=== PATIENT | female | born 1945 | race Caucasian/White ===

== ENCOUNTER 2017-09-22 12:14 | Emergency (ER) | payer MEDICARE ==
[~2017-09-22] VITALS: Ht 170.2 cm; Wt 80.0 kg
[~2017-09-22 12:14] MED LIST: COUMADIN2 MG PO; ESCITALOPRAM OX10 MG PO; LEVOTHYROXIN50 MCG PO; LEVOTHYROXIN75 MCG PO; PROAIR HFA IN; XANAX0.25 MG PO
[2017-09-22 13:01] LABS: HEMOGLOBIN 12.1 g/dl (12.0-16.0); IMMATURE GRANULOCYTES 0.4 % (0.0-1.0); MEAN CELL VOLUME 89.2 fL CALC (80.0-100.0); MEAN CORPUSCULAR HGB 29.2 pG CALC (26.0-32.0); MEAN CORPUSCULAR HGB CONC 32.7 g/L CALC (32.0-36.0); NEUT# 5.44 thou/uL (2.00-7.15); RED BLOOD COUNT 4.15 mill/uL (4.20-5.60); RED CELL DISTRI WIDTH 15.1 % (11.5-15.5)
[2017-09-22 13:16] LABS: INTERNATIONAL NORMALIZED RATIO 2.9 RATIO (0.7-1.3); PROTHROMBIN TIME 33.1 SECONDS (9.0-12.5)
[2017-09-22] MEDS ORDERED: LEVOTHYROXIN100 MCG PO (13:17)
[2017-09-22] MEDS ORDERED: XANAX0.25 MG PO (13:18)
[2017-09-22] MEDS ORDERED: PAXIL40 MG PO (13:19)
[2017-09-22 13:20] LABS: ALKALINE PHOSPHATASE 79 u/l (38-126); ANION GAP 15 (6-22 (CALC)); BILIRUBIN, TOTAL 0.4 mg/dL (0.0-1.4); BUN 12 mg/dL (8-23); BUN/CREATININE RATIO 15 (12-20 (CALC)); CARBON DIOXIDE 22 mmol/l (22-30); CHLORIDE 107 mmol/l (95-108); CREATININE 0.8 mg/dL (0.5-1.0); GFR > 60 ML/MIN (>=60 (CALC)); GFR FOR AFR.AMER. > 60 ML/MIN (>=60 (CALC)); POTASSIUM 4.1 mmol/l (3.5-5.1); SGPT/ALT 24 u/l (11-66); SODIUM 141 mmol/l (137-146)
[2017-09-22] MEDS ORDERED: WARFARIN4 MG PO (13:20)
[2017-09-22] MEDS ORDERED: ASPIRIN81 MG PO (13:21)
[2017-09-22] MEDS ORDERED: GABAPENTIN100 MG PO (13:22)
[2017-09-22] MEDS ORDERED: DONEPEZIL5 MG PO (13:22)
[2017-09-22 13:27] LABS: SGOT/AST 37 u/l (9-36)
[2017-09-22 13:32] LABS: MYOGLOBIN 28 ng/mL (0 - 62)
[2017-09-22 14:27] LABS: URINE BILIRUBIN - DIPSTICK NEGATIVE (NEGATIVE); URINE BLOOD DIPSTICK TRACE-INTACT (NEGATIVE); URINE COLOR YELLOW; URINE GLUCOSE - DIPSTICK NEGATIVE (NEGATIVE); URINE KETONE NEGATIVE (NEGATIVE); URINE NITRITE - DIPSTICK NEGATIVE (Negative); URINE PROTEIN - DIPSTICK NEGATIVE (NEG-TRACE); URINE UROBILINOGEN - DIPSTICK 0.2 E.U./dL (0.2)
[2017-09-22 14:32] LABS: URINE CLARITY SL CLOUDY; URINE LEUK ESTERASE SMALL (NEGATIVE)
[2017-09-22 14:41] LABS: URINE BACTERIA FEW hpf; URINE SQUAMOUS EPITHELIAL CELL MODERATE EPI/hpf (0-FEW)
[2017-09-22 14:42] LABS: URINE FINE GRAN CAST RARE lpf
[2017-09-22] MEDS ORDERED: LISINOPRIL10 MG PO (15:04)
[2017-09-22 16:38] VITALS: BP 195/78
== END 2017-09-22 16:38 | disposition home or self-care (01) ==
LOC: ED 12:14
PROVIDERS: Family Medicine
DX: I10 Essential (primary) hypertension (principal); R53.1 Weakness; J44.9 Chronic obstructive pulmonary disease, unspecified; I48.91 Unspecified atrial fibrillation; G62.9 Polyneuropathy, unspecified; F03.90 Unspecified dementia, unspecified severity, without behavioral disturbance, psychotic disturbance, mood disturbance, and anxiety; F41.9 Anxiety disorder, unspecified; R07.9 Chest pain, unspecified

== ENCOUNTER 2018-01-03 14:45 | Inpatient (IN) | payer MEDICARE ==
[~2018-01-03] VITALS: Ht 170.2 cm; Wt 68.0 kg
[~2018-01-03 14:45] MED LIST changes: +ASPIRIN81 MG PO; +DONEPEZIL5 MG PO; +GABAPENTIN100 MG PO; +LEVOTHYROXIN100 MCG PO; +LISINOPRIL10 MG PO; +PAXIL40 MG PO; +WARFARIN4 MG PO
[2018-01-03] MEDS ORDERED: WARFARIN3 MG PO (15:16)
[2018-01-03] MEDS ORDERED: MULTIVITAMIN WO1 TAB PO (15:21)
[2018-01-03] MEDS ORDERED: TYLENOL 500MG TAB PO (15:22)
[2018-01-09] VITALS (8 sets, daily range): BP systolic 104–157; BP diastolic 57–85
[2018-01-09 11:07] LABS: HEMOGLOBIN 12.7 g/dl (12.0-16.0); IMMATURE GRANULOCYTES 0.5 % (0.0-1.0); MEAN CORPUSCULAR HGB 30.1 pG CALC (26.0-32.0); MEAN CORPUSCULAR HGB CONC 33.4 g/L CALC (32.0-36.0); NEUT# 4.16 thou/uL (2.00-7.15); RED BLOOD COUNT 4.22 mill/uL (4.20-5.60); RED CELL DISTRI WIDTH 14.2 % (11.5-15.5)
[2018-01-09 11:25] LABS: ACT PARTIAL THROMBO TIME 26.1 SECONDS (20.0-32.5)
[2018-01-09 11:28] LABS: ANION GAP 10 (6-22 (CALC)); BUN 10 mg/dL (8-23); BUN/CREATININE RATIO 15 (12-20 (CALC)); CARBON DIOXIDE 29 mmol/l (22-30); CHLORIDE 105 mmol/l (95-108); CREATININE 0.7 mg/dL (0.5-1.0); GFR > 60 ML/MIN (>=60 (CALC)); GFR FOR AFR.AMER. > 60 ML/MIN (>=60 (CALC)); SODIUM 139 mmol/l (137-146)
[2018-01-09 11:59] LABS: PROTHROMBIN TIME 11.7 SECONDS (9.0-12.5)
--- NOTE | 2018-01-09 18:40 | NUR ---
PT ARRIVED TO FLOOR VIA HOSPITAL BED ACCOMPANIED BY OR STAFF MEMBER;PT ORIENTED TO ROOM AND CALL LIGHT SYSTEM;PT ALERT AND ORIENTED X3,DROWSY;RESPIRATIONS APPEAR EVEN AND UNLABORED ON OXYGEN @ 2L VIA NC;PT PLACED ON BEDPAN PER REQUEST;ABDUCTOR PILLOW IN PLACE;BEDSIDE REPORT TO BE GIVEN TO TERESA DHALIWAL FOR ONCOMING SHIFT;FALL PRECAUTIONS IN PLACE WITH CALL LIGHT IN REACH;WILL CONTINUE TO MONITOR
--- NOTE | 2018-01-09 19:15 | NUR ---
PATIENT RESTING IN BED WITH O2 VIA NASAL CANNULA IN PLACE AT 2LPM. PATIENT IS DROWSY-PLACED ON BEDPAN AND VOIDED SMALL AMT OF YELLOW URINE. ABD PILLOW PILLOW IN PLACE. IV SITE TO LEFT FOREARM INTACT AND IVF LR PATENT AND INFUSING AT 100CC/HR, DRESSINGS TO LEFT HIP CDI AT THIS TIME. SCD IN PLACE. FAMILY VISITING IN ROOM. FREQUENT POST-OP VS IN PROGRESS AND STABLE. SAFETY PRECAUTIONS REINFORCED. CALL LIGHT IN REACH. WILL CONT TO MONITOR.
--- NOTE | 2018-01-09 19:45 | NUR ---
PATIENT C/ OF FEELING HER BLADDER IS FULL-ABD/PELVIC DISTENTION PRESENT.BLADDER SCAN FOR 903CC AT THIS TIME. #16 FILIPINO SMITH CATH INSERTED WITHOUT ANY DIFFICULTY DRAINING 1000CC OF CLEAR YELLOW URINE. TUBING CLAMPED PER PROTOCOL-WILL OPEN IN 20 MINUTES. PATIENT STATES THAT SHE IS FEELING BETTER-LESS PELVIC PRESSURE. FAMILY REMAINS AT BEDSIDE. CALL LIGHT IN REACH. WILL CONT TO MONITOR.
--- NOTE | 2018-01-09 20:15 | NUR ---
PATIENT VS REMAINS STABLE-TAKING PO ICE CHIPS AT THIS TIME. C/O POST-OP PAIN TO LEFT HIP-10/10 ON PAIN SCALE. MEDICATED WITH DILAUDID 1MG IVP WITH RELEIF. ADMISSION PROCESS COMPLETED WITH HELP OF FAMILY MEMBERS. PATIENT WITH H/O MRSA AND WILL BE SWABBED AND PLACED ON CONTACT PRECAUTIONS AT THIS TIME. CALL LIGHT IN REACH. WILL CONT TO MONITOR.
--- NOTE | 2018-01-09 21:00 | NUR ---
PATIENT RESTING IN BED AT THIS TIME WITH EYES CLOSED AND APPEARS SLEEPING AT THIS TIME. MSITH PATENT AND DRAINING CLEAR YELLOW URINE. IVF PATENT AND INFUSING AT 100CC/HR. SITE REMAINS HEALTHY AT THIS TIME. O2 VIA NASAL CANNULA IN PLACE. ABD PILLOW IN PLACE. CONT TO MONITOR POST-OP VS. CALL LIGHT IN REACH. WILL CONT TO MONITOR.
--- NOTE | 2018-01-09 23:58 | NUR ---
PATIENT RESTING COMFORTABLY-DROWSY BUT ORIENTED TO PERSON AND PLACE. IV ANCEF HUNG ORDERED. SMITH PATENT AND DRAINING YELLOW URINE. CALL LIGHT IN REACH. WILL CONT TO MONITOR.
[2018-01-10] VITALS (7 sets, daily range): BP systolic 88–132; BP diastolic 46–71
--- NOTE | 2018-01-10 03:24 | NUR ---
PATIENT RESTING IN BED C/O POST-OP LEFT HIP PAIN-10/10 ON PAIN SCALE. PATIENT MEDICATED WITH DILAUDID 1MG IVP FOR PAIN. PATIENT WAS REPOSITIONED IN THE BED. ABD PILLOW ADJUSTED AND REMAINS IN PLACE. TAKING PO ICE CHIPS AND TOLERATING WELL. LEFT FOREARM IV SITE REDRESSED AND J-LOOP APPLIED. SITE IS HEALTHY WITH GOOD BLOOD RETURN. IVF LR PATENT AND INFUSING AT 100CC/HR. PATIENT ABLE TO DEMONSTRATE CORRECT USE OF IS-CONT TO ENCOURAGE USE Q1H WHILE AWAKE. LEFT HIP DRESSINGS REMAINS CDI AT THIS TIME. SMITH PATENT AND DRAINING MIKE URINE. SAFETY PRECAUTIONS REINFORCED. CALL LIGHT IN REACH. WILL CONT TO MONITOR.
[2018-01-10 04:52] LABS: HEMATOCRIT 30.1 % (37.0-47.0); HEMOGLOBIN 9.9 g/dl (12.0-16.0)
--- NOTE | 2018-01-10 07:15 | NUR ---
REPORT RECEIVED FROM TERESA DHALIWAL;PT RESTING IN SEMI FOWLERS POSITION WITH ABDUCTOR PILLOW IN PLACE;INTRODUCED SELF TO PT AND POC DISCUSSED;RESPIRATIONS APPEAR EVEN AND UNLABORED ON 02 @ 2L VIA NC;PT DENIES ANY CURRENT NEEDS;FALL PRECAUTIONS IN PLACE WITH BED IN THE LOWEST POSITION;IT SHOULD BE NOTED THAT PT IS ON CONTACT PRECAUTIONS FOR HX OF MRSA;CALL LIGHT IN REACH;WILL CONTINUE TO MONITOR
--- NOTE | 2018-01-10 07:50 | NUR ---
PT RESTING IN SEMI FOWLERS POSITION EATING BREAKFAST (CLEAR LIQUID);VS OBTAINED AND ASSESSMENT COMPLETED;PT REPORTS COCCYX PAIN RATING 9/10 ON THE PAIN SCALE,PT RE-POSITIONED AND PERCOCET 10/325MG PO 1 COMBO TO BE ADMINISTERED FOR PAIN;RESPIRATIONS EVEN AND UNLABORED ON 02 @ 2L VIA NC,DIMINISHED LUNG SOUNDS NOTED;NON-PRODUCTIVE COUGH;I.S. AT BEDSIDE AND GOAL SET TO 1999,PT DEMONSTRATED USE;ABDOMEN SOFT ON PALPATION AND HYPOACTIVE IN ALL 4 QUADRANTS;ABDUCTOR PILLOW IN PLACE;DRESSINGS TO LEFT HIP,CDI;#20G TO LEFT FOREARM INFUSING LR @ 100ML/HR,SITE APPEARS HEALTHY;SCD NOTED TO RIGHT LEG;SMITH CATHETER PATENT DRAINING CLEAR/YELLOW URINE TO GRAVITY,LEG STRAP NOTED;BLANKETS REMOVED FOR A TEMP OF 99.3;PT DENIES ANY OTHER NEEDS AT THIS TIME;FALL PRECAUTIONS REMAIN IN PLACE;ENCOURAGED TO CALL FOR ASSISTANCE IF NEEDED;CALL LIGHT IN REACH;WILL CONTINUE TO MONITOR
[2018-01-10 09:22] LABS: INTERNATIONAL NORMALIZED RATIO 1.1 RATIO (0.7-1.3); PROTHROMBIN TIME 11.8 SECONDS (9.0-12.5)
--- NOTE | 2018-01-10 10:45 | NUR ---
PHYSICAL THERPAY AT BEDSIDE
--- NOTE | 2018-01-10 11:40 | NUR ---
PT OOB RESTING IN RECLINER WITH FAMILY AT BEDSIDE;VS OBTAINED WITH A CURRENT TEMP REMAINING AT 99.3 BP 88/50 HR 72;PT DENIES ANY PAIN OR DISCOMFORTS;RESPIRATIONS EVEN AND UNLABORED ON RA,RE-ENCOURAGED I.S. USE;IV SITE TO LEFT FOREARM REMAINS PATENT AND HL AT THIS TIME;CONTACT PRECAUTIONS IN PLACE;ENCOURAGED TO CALL FOR ASSISTANCE IF NEEDED;FALL PRECAUTIONS;CALL LIGHT IN REACH;WILL CONTINUE TO MONITOR
--- NOTE | 2018-01-10 12:40 | NUR ---
PT RE-POSITIONED INTO BED WITH 2 PERSON ASSIST,WALKER AND UNSTEADY GAIT;BED BATH PROVIDED WITH SMITH CARE;PT REPORTS NAUSEA BUT DENIES THE NEED FOR AN ANTIEMETIC,EMESIS BAGS PROVIDED;FALL PRECAUTIONS REMAIN IN PLACE;CALL LIGHT IN REACH;WILL CONTINUE TO MONITOR
--- NOTE | 2018-01-10 14:00 | NUR ---
PT COMPLAINS OF LEFT HIP PAIN RATING 10/10 ON THE PAIN SCALE AND REQUESTS PAIN MEDICATION;PT MEDICATED WITH PERCOCET 10/325MG PO 2 COMBO AT THIS TIME,WILL MONITOR FOR EFFECTIVENESS
--- NOTE | 2018-01-10 14:25 | NUR ---
PHYISCAL THERAPY AT BEDSIDE
--- NOTE | 2018-01-10 14:46 | NUR ---
Pt. found resting in bed, when questioned pt. agrees to participate in functional actvities consisting of transfer training. Hip precautions reviewed, gait belt and non skid socks applied. AROM of bilateral toes and ankle pumps done for warm up prior to transfer training. Supine to sit with mod. assist x1 and verbal cues for using bed railing to assist. Good static sitting balance noted. Bed was elevated to faciliate sit to stand to standard walker which was done with min. assist x 1 and v.c.'s for UE push off. Pt. took 3 steps to recliner using standard walker with CGA x 1 and verbal cues for proper patterning. Pt. instructed on reaching back for armrests on recliner and gently lowering onto recliner of which she proceeded to do with CGA x 1. LE's were elevated, call light and bedside table left within reach. Pt. without questions or concerns.
--- NOTE | 2018-01-10 16:50 | NUR ---
PT OOB RESTING IN RECLINER;PT DENIES ANY CURRENT PAIN OR NEEDS;RESPIRATIONS REMAIN EVEN AND UNLABORED ON RA;SMITH CATHETER IN PLACE;ENCOURAGED TO CALL FOR ASSISTANCE IF NEEDED;FALL PRECAUTIONS;CALL LIGHT IN REACH;WILL CONTINUE TO MONITOR
--- NOTE | 2018-01-10 20:00 | NUR ---
PATIENT SITTING ON THE SIDE OF THE BED-AWAKE ALERT AND ORIENTEDX3 USING IS HAS BEEN INSTRUCTED. ENCOURAGE TO CONT USING IS Q1H W/A IN REPS OF 10. PATIENT IS ON ROOM AIR AT THIS TIME WITH NO DISTRESS NOTED. BS ARE CLEAR-DIMINISHED IN THE BASES-ENCOURAGED CDB EXERCISES. SMITH CATH IS PATENT AND DRAINING YELLOW URINE. DRESSING TO LEFT HIP IS CDI. IV SITE TO LEFT FOREARM INTACT-APPEARS HEALTHY AT THIS TIME. PATIENT ASSISTED BACK TO THE BED AND ABD IS IN PLACE. MEDICATED FOR C/O POST-OP PAIN WITH PERCOCET 10/325MG PO. ENCOURAGED PO FLUIDS-PROVIDED WITH SODA. SAFETY PRECAUTIONS REINFORCED.CALL LIGHT IN REACH. WILL CONT TO MONITOR.
--- NOTE | 2018-01-10 22:00 | NUR ---
PATIENT RESTING IN BED-APPEARS SLEEPING AT THIS TIME-O2 SAT AT THIS TIME 92% ON RA-O2 VIA NASAL CANNULA APPLIED AT 2LPM. CALL LIGHT IN REACH. WILL CONT TO MONITOR.
--- NOTE | 2018-01-11 00:30 | NUR ---
PATIENT RESTING IN BED-MEDICATED FOR C/O POST-OP PAIN WITH PERCOCET ORDERED. SAFETY PRECAUTIONS REINFORCED. CALL LIGHT IN REACH. WILL CONT TO MONITOR.
--- NOTE | 2018-01-11 02:35 | NUR ---
PATIENT CALLED C/O SEVERE PAIN TO LEFT HIP AND TO HER COCCYX. PATIENT WAS TURNED AND REPOSITIONED ON HER RIGHT SIDE. MEDICATED FOR PAIN WITH DILAUDID 1MG IVP FOR 10/10 ON PAIN SCALE. DRESSING TO LEFT HIP CLEAN DRY AND INTACT. SMITH DRAINING MIKE URINE. TAKING SIPS OF PO FLUIDS. IV SITE TO LEFT FOREARM REMAINS HEALTHY. SAFETY PRECAUTIONS REINFORCED. CALL LIGHT IN REACH. WILL CONT TO MONITOR.
--- NOTE | 2018-01-11 04:23 | NUR ---
PATIENT APPEARS SLEEPING WITH EYES CLOSED AND POSITIONED ON HER SIDE. RESP ARE EVEN AND UNLABORED WITH O2 VIA NASAL CANNULA IN PLACE. CALL LIGHT IN REACH. WILL CONT TO MONITOR.
[2018-01-11 04:26] LABS: HEMATOCRIT 24.7 % (37.0-47.0); HEMOGLOBIN 8.1 g/dl (12.0-16.0)
[2018-01-11 04:40] LABS: INTERNATIONAL NORMALIZED RATIO 1.2 RATIO (0.7-1.3); PROTHROMBIN TIME 13.6 SECONDS (9.0-12.5)
[2018-01-11 04:47] LABS: BUN 19 mg/dL (8-23); BUN/CREATININE RATIO 20 (12-20 (CALC)); CARBON DIOXIDE 26 mmol/l (22-30); CHLORIDE 101 mmol/l (95-108); GFR 54 ML/MIN (>=60 (CALC)); GFR FOR AFR.AMER. > 60 ML/MIN (>=60 (CALC)); MAGNESIUM 1.9 mg/dL (1.6-2.3); POTASSIUM 3.6 mmol/l (3.5-5.1)
[2018-01-11 04:51] LABS: ANION GAP 9 (6-22 (CALC))
[2018-01-11 04:52] LABS: SODIUM 132 mmol/l (137-146)
[2018-01-11 05:16] VITALS: BP 103/47
--- NOTE | 2018-01-11 07:25 | NUR ---
REPORT RECEIVED FROM TERESA DHALIWAL;PT APPEARS TO BE SLEEPING IN SUPINE POSITION;NO S/S OF DISTRESS NOTED;RESPIRATIONS EVEN AND UNLABORED ON OXYGEN @ 2L VIA NC;NO S/S OF DISTRESS NOTED;FALL PRECAUTIONS IN PLACE WITH CALL LIGHT IN REACH;WILL CONTINUE
[2018-01-11 09:24] VITALS: BP 95/40
--- NOTE | 2018-01-11 09:25 | NUR ---
PT RESTING IN SEMI FOWLERS POSITION;PT DENIES ANY PAIN OR DISCOMFORTS;RESPIRATIONS EVEN AND UNLABORED ON OXYGEN @ 2L VIA NC,CLEAR LUNG SOUNDS NOTED;I.S. AT BEDSIDE AND PT ENCOURAGED TO USE 10X PER HOUR WHILE AWAKE;ABDOMEN SOFT ON PALPATION AND ACTIVE IN ALL 4 QUADRANTS;LEFT HIP DRESSING CDI;ABDUCTOR PILLOW IN PLACE;SMITH CATHETER PATENT DRAINING CLEAR/YELLOW URINE,LEG STRAP NOTED;#20G TO LEFT FOREARM FLUSHED AND PATENT,SITE APPEARS HEALTHY;PT DENIES ANY OTHER CURRENT NEEDS;ENCOURAGED TO CALL FOR ASSISTANCE IF NEEDED;FALL PRECAUTIONS IN PLACE;CALL LIGHT IN REACH;WILL CONTINUE TO MONITOR
--- NOTE | 2018-01-11 11:35 | NUR ---
PHYSICAL THERAPY AT BEDSIDE
--- NOTE | 2018-01-11 12:00 | NUR ---
PT OOB RESTING IN RECLINER,DROWSY/WEAK;PT DENIES ANY PAIN OR NEEDS;RESPIRATIONS SHALLOW ON OXYGEN @ 2L VIA NC;SMITH CATHETER PATENT DRAINING TO GRAVITY WITH EASE;PT ENCOURAGED TO USE I.S. AND INCREASE ORAL INTACT;FALL PRECAUTIONS REMAIN IN PLACE;CALL LIGHT IN REACH;WILL CONTINUE TO MONITOR
[2018-01-11 12:45] VITALS: BP 98/59
--- NOTE | 2018-01-11 12:50 | NUR ---
AM: PATIENT RECEIVED ADL RETRAINING THIS A.M. GAIT TRAINIING WAS ATTEMPTED AND PATIENT WAS DIZZY AND PO2 DROPPED TO 89% WHEN SHE STOOD. SHE WAS PLACED ON O2 AND RETURNED TO THE CHAIR THE O2 LEVEL RETURNED TO 95% WITHIN ONE MINUTE AND PATIENT STATED SHE FELT BETTER. ACTIVE AND ISOMETRIC EX DONE IN THE CHAIR. REINTRUCTED PATIENT AND FAMILY IN HIP PRECAUTIONS. SHE WAS LEFT COMFORTABLE IN THE CHAIR WITH THE ABDUCTION PILLOW INTACT AND HER FAMILTY IN THE ROOM.
--- NOTE | 2018-01-11 13:30 | NUR ---
SMITH CATHETER REMOVED AT THIS TIME,PT TOLERATED WELL;100CC OF CLEAR/YELLOW URINE EMPTIED FROM CATHETER BAG;PT TO BE RE-POSITIONED BACK INTO BED FOR COMFORT
--- NOTE | 2018-01-11 14:37 | NUR ---
PM; REFUSED TREATMENT. PATIENT STATES SHE IS HURTING REAL BAD, FEELS NAUSEOUS, AND WEAK. WILL OFFER THERAPY AGAIN IN A.M.
[2018-01-11 14:50] VITALS: BP 105/61
--- NOTE | 2018-01-11 14:50 | NUR ---
PT RE-POSITIONED INTO BEDSIDE WITH 2 PERSON ASSIST AND UNSTEADY GAIT;DRESSINGS TO LEFT HIP REMOVED PER ORDER AND PT TOLERATED WELL;RESPIRATIONS REMAIN EVEN AND UNLABORED,SHALLOW ON OXYGEN @ 2L VIA NC;PT REPORTS LEFT HIP PAIN RATING 8/10 ON THE PAIN SCALE AND REQUESTS PAIN MEDICATION;PT MEDICATED WITH PRN PERCOCET 10/325MG 1 COMBO PO,WILL CONTINUE TO MONITOR FOR EFFECTIVENESS
--- NOTE | 2018-01-11 16:30 | NUR ---
PT APPEARS TO BE SLEEPING IN SUPINE POSITION;NO S/S OF DISTRESS NOTED;RESPIRATIONS EVEN AND UNLABORED ON OXYGEN @ 2L VIA NC;FALL AND CONTACT PRECAUTIONS IN PLACE;CALL LIGHT IN REACH;WILL CONTINUE TO MONITOR
[2018-01-11 17:33] VITALS: BP 94/56
[2018-01-11 19:20] VITALS: BP 84/50
[2018-01-12] VITALS (9 sets, daily range): BP systolic 97–154; BP diastolic 51–78
--- NOTE | 2018-01-12 01:42 | NUR ---
PATIENT ASSISTED UP TO THE BSC-VERY WEAK AND SOB WITH EXHERSION. VOIDED 100CC OF MIKE URINE. PATIENT USING IS INSTRUCTED BUT HAVING SOME DIFFICULTY. VENTOLIN INHALER GIVEN. ASSISTED BACK TO BED AND ABD PILLOW IN PLACE. BLADDER SCAN FOR 324CC. O2 VIA NASAL CANNULA IN PLACE. CALL LIGHT IN REACH. WILL CONT TO MONITOR.
--- NOTE | 2018-01-12 03:58 | NUR ---
PATIENT ASSISTED TO BSC TO VOID 200CC OF YELLOW URINE. PATIENT WAS ALSO INCONT OF MODERATE AMT OF URINE ON PROTECTIVE PAD ON THE BED. PATIENT C/O THAT SHE STILL FEELS FULL AFTER VOID. ASSISTED BACK TO BED. ABD/PELVIC DISTENTION PRESENT. FEELS PRESSURE. BBLADDER SCAN FOR 364CC/ #16 TU[place] SMITH CATH INSERTED AND DRAINING YELLOW URINE. VS TAKEN AND RECORDED. C/O POST-OP PAIN-MEDICATED WITH PERCOCET 10/325MG PO. CALL LIGHT IN REACH. WILL CONT TO MONITOR.
[2018-01-12 05:04] LABS: HEMOGLOBIN 7.8 g/dl (12.0-16.0); IMMATURE GRANULOCYTES 0.5 % (0.0-1.0); MEAN CELL VOLUME 90.9 fL CALC (80.0-100.0); MEAN CORPUSCULAR HGB 29.5 pG CALC (26.0-32.0); MEAN CORPUSCULAR HGB CONC 32.5 g/L CALC (32.0-36.0); NEUT# 6.59 thou/uL (2.00-7.15); RED BLOOD COUNT 2.64 mill/uL (4.20-5.60); RED CELL DISTRI WIDTH 14.2 % (11.5-15.5)
[2018-01-12 05:19] LABS: BUN 15 mg/dL (8-23); BUN/CREATININE RATIO 20 (12-20 (CALC)); CARBON DIOXIDE 28 mmol/l (22-30); CHLORIDE 98 mmol/l (95-108); CREATININE 0.8 mg/dL (0.5-1.0); GFR > 60 ML/MIN (>=60 (CALC)); GFR FOR AFR.AMER. > 60 ML/MIN (>=60 (CALC)); MAGNESIUM 2.1 mg/dL (1.6-2.3); SODIUM 131 mmol/l (137-146)
[2018-01-12 05:22] LABS: INTERNATIONAL NORMALIZED RATIO 1.3 RATIO (0.7-1.3); PROTHROMBIN TIME 14.7 SECONDS (9.0-12.5)
[2018-01-12 05:25] LABS: ANION GAP 9 (6-22 (CALC)); POTASSIUM 4.4 mmol/l (3.5-5.1)
--- NOTE | 2018-01-12 06:50 | NUR ---
REPORT RECEIVED FROM TERESA DHALIWAL;PT RESTING IN SEMI FOWLERS POSITION;INTRODUCED SELF TO PT AND POC DISCUSSED,PT VERBALIZES UNDERSTANDING;RESPIRATIONS EVEN AND UNLABORED,SHALLOW ON O2 @ 2L;ENCOURAGED PT TO EXPRESS NEEDS AND CONCERNS;FALL PRECAUTIONS IN PLACE WITH CALL LIGHT IN REACH;WILL CONTINUE TO MONITOR
--- NOTE | 2018-01-12 09:00 | NUR ---
PT RESTING IN SEMI FOWLERS POSITION;VS OBTAINED AND ASSESSMENT COMPLETED;PT DENIES ANY CURRENT PAIN AND IS RE-POSITIONED TO HER LEFT SIDE PER REQUEST;RESPIRATIONS EVEN AND UNLABORED ON O2 @ 2L VIA NC,SHALLOW BREATHING WITH CLEAR/DIMINISHED LUNG SOUNDS;ENCOURAGED I.S. AND PT DEMONSTRATED USE,GOAL SET TO 1500;ABDOMEN SOFT ON PALPATION AND ACTIVE IN ALL 4 QUADRANTS;#20G TO LEFT FOREARM FLUSHED AND PATENT,SITE APPEARS HEALTHY;SMITH CATHETER PATENT DRAINING CLEAR/YELLOW URINE,LEG STRAP IN PLACE;PT EDUCATED ON THE NEED FOR 1 UNIT OF PRBCS AND VERBALIZES UNDERSTANDING,ALL QUESTIONS ANSWERED AT THIS TIME AND CONSENT TO BE OBTAINED;ENCOURAGED PO FLUIDS;FALL PRECAUTIONS REMAIN IN PLACE WITH BED IN THE LOWEST POSITION;CALL LIGHT IN REACH;WILL CONTINUE TO MONITOR
--- NOTE | 2018-01-12 09:55 | NUR ---
FIRST UNIT OF PRBC'S STARTED AT THIS TIME WITH EASE;BLOOD PRODUCTS AND ADVERSE REACTIONS EXPLAINED IN DEPTH AND PT VERBALIZES UNDERSTANDING;PT ENCOURAGED TO REPORT ANY TRANSFUSION REACTIONS;WRITTER TO REMAIN AT BEDSIDE FOR FIRST 15MINS;WILL CONTINUE TO MONITOR
--- NOTE | 2018-01-12 10:05 | NUR ---
IV SITE TO LEFT FOREARM DISLODGED,SITE REMOVED WITH CATHETER INTACT;NEW SITE TO BE STARTED
--- NOTE | 2018-01-12 10:45 | NUR ---
NEW #22G TO RIGHT WRIST STARTED BY TERESA THIBODEAUX ON 3RD ATTEMPT,PT TOLERATED WELL;TRANSFUSION CONTINUED AT THIS TIME;WILL CONTINUE TO MONITOR
--- NOTE | 2018-01-12 11:00 | NUR ---
PT RESTING IN LEFT SIDE LAYING POSITION WITH FAMILY AT BEDSIDE;BLOOD TRANSFUSION INFUSING WITH EASE TO RIGHT WRIST;VS OBTAINED BP 117/51 HR 66 TEMP 98.0;RESPIRATIONS REMAIN EVEN AND UNLABORED ON 02 @ 2L;PT DENIES ANY CURRENT NEEDS;ENCOURAGED TO CALL FOR ASSISTANCE IF NEEDED;WILL CONTINUE TO MONITOR CLOSELY
--- NOTE | 2018-01-12 11:48 | NUR ---
Attempted treatment this am, pt rec'ing blood. Will follow.
--- NOTE | 2018-01-12 12:00 | NUR ---
PT RESTING IN SEMI FOWLERS POSITION WITH FAMILY AT BEDSIDE;RESPIRATIONS REMAIN EVEN AND UNLABORED ON OXYGEN @ 2L;VS OBTAINED;BLOOD INFUSING WITH EASE TO RIGHT WRIST;PT DENIES ANY CURRENT PAIN OR NEEDS;SMITH CATHETER PATENT DRAINING TO GRAVITY;ENCOURAGED PT TO CALL FOR ASSISTANCE IF NEEDED;CALL LIGHT IN REACH;WILL CONTINUE TO MONITOR
--- NOTE | 2018-01-12 13:00 | NUR ---
BLOOD TRANSFUSION COMPLETED AT THIS TIME;VS OBTAINED;PT DENIES ANY PAIN OR NEEDS;REPSPIRATIONS REMAIN EVEN AND UNLABORED;SMITH CATHETER PATENT DRAINING TO GRAVITY;ENCOURAGED PT TO CALL FOR ASSISTANCE IF NEEDED;FALL PRECAUTIONS IN PLACE;WILL CONTINUE TO MONITOR
--- NOTE | 2018-01-12 13:50 | NUR ---
PT FOUND ATTEMPTING TO GET OUT OF BED,TEARFUL;PT STATES "I JUST NEED TO GET OUT OF THIS BED";WHEN ASKED WHY SHE DIDNT CALL PT STATES "I JUST COULDN'T"; PT RE-POSITIONED INTO RECLINER WITH 1 PERSON ASSIST;PRN PERCOCET 10/325MG 1 COMBO PO ADMINISTERED FOR GENERALIZED PAIN RATING 10/10 ON THE PAIN SCALE;PT DENIES ANY OTHER CURRENT NEEDS;ENCOURAGED TO CALL FOR ASSISTANCE IF NEEDED;CALL LIGHT IN REACH;WILL CONTINUE TO MONITOR
--- NOTE | 2018-01-12 15:50 | NUR ---
PT SLEEPING IN RECLINER AT THIS TIME;RESPIRATIONS EVEN AND UNLABORED ON RA;NO S/S OF DISTRESS NOTED;FALL PRECAUTIONS IN PLACE WITH CALL LIGHT IN REACH;WILL CONTINUE TO MONITOR
--- NOTE | 2018-01-12 15:50 | NUR ---
PATIENT SNOOZING WHILE UP IN CHAIR, EASILY AROUSED. SHE STATES SHE IS FEELING MUCH BETTER SINCE HAVING HAD BLOOD TRANSFUSION THIS A.M. SIT TO STAND WITH SBA TO WALKER FOR GT IN ROOM (ON CONTACT PRECAUTIONS). AMB 35 FT WITH SBA AND V.C.'S ONLY FOR INCREASED STEP LENGTH. STAND TO SIT WITH V.C.'S WELL. PATIENT HAD RIGHT [employer] ABOUT 6 YEARS AGO AND STATES THAT SHE HAS ALL THE EQUIPMENT SHE NEEDS AT HOME. SHE IS GOING TO GO TO REHAB WHEN D/C'D. PATIENT LEFT UP IN CHAIR WITH TRAY TABLE AND CALL MARROQUIN IN REACH. NSG PRESENT.
--- NOTE | 2018-01-12 19:57 | NUR ---
MEDICATED PT.FOR PAIN 6/10 ON PAIN SCALE. PT.STATES SHE HAS BEEN SITTING IN CHAIR FOR A LONG TIME. FAMILY IS AT BEDSIDE AND ASSISTING HER BACK TO BED. POC AND MEDICATIONS DISCUSSED. PT.PROVIDED WARMED BLANKET AND KLEENEX. NO OTHER NEEDS NOTED AT THIS THIS TIME. CALL LIGHT AT SIDE AND PT.ENCOURAGED TO CALL IF ANY NEEDS ARISE.
--- NOTE | 2018-01-12 21:43 | NUR ---
PT.MEDICATED ORDERS PROVIDE. PT.IS BACK TO BED W/WEDGE PLACED BETWEEN LEGS. ASSESSMENT COMPLETED AT THIS TIME, LUNG SOUNDS ARE CLEAR, DENIES BM TODAY, SMITH PATENT AND DRAINING DARK YELLOW CLEAR URINE AT THIS TIME, ABD SOFT NON-TENDER, PT.RESPONSIVE AND LOCX3,BUT APPEARS VERY GROGGY/XANAX HELD AT THIS TIME. CALL LIGHT W/IN REACH AND PT.ENCOURAGED TO CALL.
[2018-01-13] VITALS (7 sets, daily range): BP systolic 93–140; BP diastolic 49–72
--- NOTE | 2018-01-13 02:47 | NUR ---
PT.APPEARS TO BE SLEEPING AT THIS TIME. CALL LIGHT AT BEDSIDE, NO S/S OF DISTRESS NOTED.
--- NOTE | 2018-01-13 03:52 | NUR ---
V/S ASSESSED, PT ASSISTED IN REPOSITIONING. C/O PAIN "ALL OVER," PT WAS MEDICATED W/PAIN MEDICATION AT THIS TIME. WEDGE BETWEEN LEGS FOR POSITIONING. PT.ASSISTED W/INTAKE OF PO FLUIDS. DENIES ANY OTHER NEEDS AT THIS TIME. CALL LIGHT W/IN REACH
[2018-01-13 06:04] LABS: HEMATOCRIT 22.2 % (37.0-47.0); HEMOGLOBIN 7.5 g/dl (12.0-16.0); IMMATURE GRANULOCYTES 0.5 % (0.0-1.0); MEAN CORPUSCULAR HGB 30.7 pG CALC (26.0-32.0); MEAN CORPUSCULAR HGB CONC 33.8 g/L CALC (32.0-36.0); NEUT# 4.5 thou/uL (2.00-7.15); RED BLOOD COUNT 2.44 mill/uL (4.20-5.60); RED CELL DISTRI WIDTH 14.1 % (11.5-15.5)
[2018-01-13 06:20] LABS: ANION GAP 6 (6-22 (CALC)); BUN 12 mg/dL (8-23); BUN/CREATININE RATIO 18 (12-20 (CALC)); CARBON DIOXIDE 31 mmol/l (22-30); CHLORIDE 102 mmol/l (95-108); CREATININE 0.6 mg/dL (0.5-1.0); GFR > 60 ML/MIN (>=60 (CALC)); GFR FOR AFR.AMER. > 60 ML/MIN (>=60 (CALC)); INTERNATIONAL NORMALIZED RATIO 1.4 RATIO (0.7-1.3); MAGNESIUM 2.3 mg/dL (1.6-2.3); POTASSIUM 4.4 mmol/l (3.5-5.1); SODIUM 135 mmol/l (137-146)
--- NOTE | 2018-01-13 09:15 | NUR ---
PT RESTING IN BED,NO SIGNS OF DISTRESS NOTED, RESP EVEN AND UNLABORED. PT IS USING IS, TOLERATING WELL. PT ALERT AND ORIENTED X2, REQUIRES REORIENTATION TO TIME AND DAY, PT RESPONDED WITH "IS IT MORNING OR NIGHT,I'M A LITTLE LOONEY" ABDUCTOR PAD IN BETWEEN BLE. LUNG SOUNDS DAVIS STARTED ON NEB TX, PT GIVEN MOM,MIRALAX,COLACE,AND PRUNE JUICE SINCE SHE STATES SHE HAS NOT HAD A BM SINCE ADMISSION. ASSESSMENT COMPLETED AT THIS TIME. CALL LIGHT IN REACH,CONTINUE TO MONITOR.
--- NOTE | 2018-01-13 10:55 | NUR ---
PT TAKEN DOWN TO RADIOLOGY FOR CXR, TRANPORTED VIA WHEELCHAIR ACCOMPANIED BY VOLUNTEER. CONTINUE TO MONITOR.
--- NOTE | 2018-01-13 11:15 | NUR ---
PT RETURNED FROM RADIOLOGY, PT IN AGREEMENT TO TAKE A SHOWER, ASSISTED BY CNAS TO SHOWER, PT TOLERATED WELL. FAMILY AT BEDSIDE. CONTINUE TO MONITOR.
--- NOTE | 2018-01-13 12:07 | NUR ---
Attempted treatment at 11;50, pt eating lunch.
--- NOTE | 2018-01-13 13:30 | NUR ---
PT RESTING IN BED NO SIGNS OF DISTRESS NOTED, INITIATED PRBCS WITH RN, PT MEDICATED FOR PAIN, CALL LIGHT IN REACH CONTINUE TO MONITOR.
--- NOTE | 2018-01-13 14:03 | NUR ---
Pt in bed with nursing preparing to give pt Blood. Unable to treat pt at this time.
--- NOTE | 2018-01-13 16:10 | NUR ---
UNIT OF PRBCS INFUSION COMPLETED, PT VOICES NO NEEDS OR COMPLAINTS AT THIS TIME, VSS, CALL LIGHT IN REACH,CONTINUE TO MONITOR.
--- NOTE | 2018-01-13 19:25 | NUR ---
REPORT RECEIVED FROM DAY NURSE, FAMILY IS AT BEDSIDE. PT.IS UPRIGHT IN RECLINER. DENIES ANY NEEDS AT THIS TIME.
--- NOTE | 2018-01-13 20:55 | NUR ---
PT.IS IN BED IN HIGH FOWLERS POSITION W/LIGHTS ON LOW. SMITH CATHETER REMOVED AND POC DISCUSSED W/PT. WEDGE PLACED BETWEEN LEGS AND PT.REPOSTIONED IN BED FOR COMFORT. CALL LEBRON SOLORZANO SIDE AND PT ENCOURAGED TO CALL.
[2018-01-13] MEDS ORDERED: GLYCOLAX3350 N1 PO (21:09)
[2018-01-13] MEDS ORDERED: SURFAK240 MG/CAP PO (21:09)
[2018-01-13] MEDS ORDERED: PAROXETINE HCL10 MG PO (21:11)
[2018-01-13] MEDS ORDERED: XANAX0.25 MG PO (21:11)
[2018-01-13] MEDS ORDERED: PERCOCET 10/31 COMBO PO (21:13)
[2018-01-13] MEDS ORDERED: FERROUS SULF325 M2 PO (21:14)
--- NOTE | 2018-01-14 02:10 | NUR ---
PT.ASSISTED TO BSC AND BACK TO BED. PT AMBULATED WELL W/1XASSIST USING WALKER. PT.HAS REDNESS TO UPPER INNER L.THIGH AND DISTAL OUTER L.THIGH. WEDGE PLACED BETWEEN LEGS AND ASSISTED IN POSITIONING FOR COMFORT. PO FLUIDS OFFERED/PROVIDED APPLE JUICE. CALL LIGHT AT BEDSIDE.
[2018-01-14 04:19] VITALS: BP 134/67
[2018-01-14 06:16] LABS: HEMATOCRIT 25.7 % (37.0-47.0); HEMOGLOBIN 8.5 g/dl (12.0-16.0); IMMATURE GRANULOCYTES 0.5 % (0.0-1.0); MEAN CELL VOLUME 90.8 fL CALC (80.0-100.0); MEAN CORPUSCULAR HGB CONC 33.1 g/L CALC (32.0-36.0); NEUT# 4.53 thou/uL (2.00-7.15); RED BLOOD COUNT 2.83 mill/uL (4.20-5.60); RED CELL DISTRI WIDTH 14.6 % (11.5-15.5)
[2018-01-14 06:29] LABS: ANION GAP 9 (6-22 (CALC)); BUN 10 mg/dL (8-23); BUN/CREATININE RATIO 17 (12-20 (CALC)); CARBON DIOXIDE 30 mmol/l (22-30); CHLORIDE 100 mmol/l (95-108); CREATININE 0.6 mg/dL (0.5-1.0); GFR > 60 ML/MIN (>=60 (CALC)); GFR FOR AFR.AMER. > 60 ML/MIN (>=60 (CALC)); MAGNESIUM 2.4 mg/dL (1.6-2.3); POTASSIUM 4.6 mmol/l (3.5-5.1); SODIUM 135 mmol/l (137-146)
[2018-01-14 06:35] LABS: INTERNATIONAL NORMALIZED RATIO 1.8 RATIO (0.7-1.3)
[2018-01-14 07:28] VITALS: BP 150/66; BP 174/73
--- NOTE | 2018-01-14 07:28 | NUR ---
PT RESTING IN BED, NO SIGNS OF DISTRESS NOTED, RESP EVEN AND UNLABORED. PT ALERT AND ORIENTED X3. PT LUNG SOUNDS BETTER THAN YESTERDAYS ASSESSMENT. PT NO LONGER PRODUCING BLOODY SPUTUM. INCISION TO L HIP INTACT WITH DERMABOND. NOTED REDNESS TO DISTAL OUTER THIGH FROM INCISION, AND TO INNER THIGH. SMITH REMOVED LAST NIGHT PT HAS BEEN UP TO BSC WITH STAND BY ASSIST PT ABLE TO AMBULATE WITH WALKER. CALL LIGHT IN REACH,CONTINUE TO MONITOR.
--- NOTE | 2018-01-14 12:11 | NUR ---
PT SITTING IN RECLINER EATING LUNCH. MEDICATED FOR PAIN. PT TO BE TRANSPORTED TO [facility] IN [place], IV SITE REMOVED, CATHETER INTACT. PT TOLERATED WELL. CALL LIGHT IN REACH,CONTINUE TO MONITOR.
--- NOTE | 2018-01-14 12:30 | NUR ---
Discharge instructions given. Patient verbalizes understanding of same. Discharged in stable condition via Stretcher to *Other with *Other. All belongings sent with pt.
--- NOTE | 2018-01-14 12:45 | NUR ---
REPORT GIVEN TO NURSE IN [facility].
== END 2018-01-14 12:40 | DRG 470 ==
LOC: MS2 01-09 09:43
PROVIDERS: Nurse Practitioner Family; ADMIT Orthopaedic Surgery; ATTEND Orthopaedic Surgery
PROC: 0SRB04A Replacement of Left Hip Joint with Ceramic on Polyethylene Synthetic Substitute, Uncemented, Open Approach (ICD-10-PCS; principal; 2018-01-09)
PROC: 0T9B70Z Drainage of Bladder with Drainage Device, Via Natural or Artificial Opening (ICD-10-PCS; 2018-01-12)
PROC: 30233N1 Transfusion of Nonautologous Red Blood Cells into Peripheral Vein, Percutaneous Approach (ICD-10-PCS; 2018-01-12)
PROC: 30233N1 Transfusion of Nonautologous Red Blood Cells into Peripheral Vein, Percutaneous Approach (ICD-10-PCS; 2018-01-13)
DX: M16.12 Unilateral primary osteoarthritis, left hip (principal); D62 Acute posthemorrhagic anemia; R04.2 Hemoptysis; J44.9 Chronic obstructive pulmonary disease, unspecified; M25.752 Osteophyte, left hip; E03.9 Hypothyroidism, unspecified; I48.0 Paroxysmal atrial fibrillation; F41.9 Anxiety disorder, unspecified; F03.90 Unspecified dementia, unspecified severity, without behavioral disturbance, psychotic disturbance, mood disturbance, and anxiety; R33.8 Other retention of urine; K59.00 Constipation, unspecified; Z85.42 Personal history of malignant neoplasm of other parts of uterus; Z96.641 Presence of right artificial hip joint; Z95.0 Presence of cardiac pacemaker; Z85.3 Personal history of malignant neoplasm of breast; Z79.01 Long term (current) use of anticoagulants; Z99.81 Dependence on supplemental oxygen; F32.9 Major depressive disorder, single episode, unspecified; I25.10 Atherosclerotic heart disease of native coronary artery without angina pectoris; R23.3 Spontaneous ecchymoses
CPT/HCPCS: J1650; J1756; P9016

== ENCOUNTER → 2018-09-18 | Outpatient (REF) | payer MEDICARE ==
[~2018-09-18] MED LIST changes: +FERROUS SULF325 M2 PO; +GLYCOLAX3350 N1 PO; +MULTIVITAMIN WO1 TAB PO; +PAROXETINE HCL10 MG PO; +PERCOCET 10/31 COMBO PO; +SURFAK240 MG/CAP PO; +TYLENOL 500MG TAB PO; +WARFARIN3 MG PO
[2018-09-18 10:30] LABS: MEAN CELL VOLUME 93.3 fL CALC (80.0-100.0); MEAN CORPUSCULAR HGB 30.4 pG CALC (26.0-32.0); MEAN CORPUSCULAR HGB CONC 32.6 g/L CALC (32.0-36.0); RED BLOOD COUNT 4.61 mill/uL (4.20-5.60); RED CELL DISTRI WIDTH 13.5 % (11.5-15.5)
[2018-09-18 10:52] LABS: ALBUMIN 4.5 g/dL (3.2-5.0); ALKALINE PHOSPHATASE 76 u/l (38-126); ANION GAP 16 (6-22 (CALC)); BILIRUBIN, TOTAL 0.6 mg/dL (0.0-1.4); BUN 13 mg/dL (8-23); BUN/CREATININE RATIO 16 (12-20 (CALC)); CALCULATED LDLCHOLESTEROL 146 mg/dL (62-129 (CALC)); CARBON DIOXIDE 26 mmol/l (22-30); CHLORIDE 103 mmol/l (95-108); CHOLESTEROL HDL RATIO 4.5 (<4.4 (CALC)); CREATININE 0.8 mg/dL (0.5-1.0); GFR > 60 ML/MIN (>=60 (CALC)); GFR FOR AFR.AMER. > 60 ML/MIN (>=60 (CALC)); HDL CHOLESTEROL 56 mg/dL (>=40); POTASSIUM 4.5 mmol/l (3.5-5.1); SGOT/AST 21 u/l (9-36); SODIUM 141 mmol/l (137-146); TOTAL CHOLESTEROL 254 mg/dl (0-199); TOTAL PROTEIN 7.6 g/dL (6.3-8.2); TOTAL TRIGLYCERIDES 261 mg/dl (30-149); VLDL CHOLESTROL 52 mg/dl (0-48 (CALC))
[2018-09-18 11:11] LABS: TSH, 3RD GENERATION 0.77 uIU/mL (0.47 - 4.68)
[2018-09-18 11:27] LABS: INTERNATIONAL NORMALIZED RATIO 2.7 RATIO (0.7-1.3); PROTHROMBIN TIME 27.9 SECONDS (9.0-12.5)
== END | disposition home or self-care (01) ==
LOC: LAB 08:58
PROVIDERS: ATTEND Internal Medicine
DX: I48.2 Chronic atrial fibrillation (principal); I20.8 Other forms of angina pectoris; I10 Essential (primary) hypertension; E78.49 Other hyperlipidemia; E03.9 Hypothyroidism, unspecified; R53.83 Other fatigue; E11.65 Type 2 diabetes mellitus with hyperglycemia; E55.9 Vitamin D deficiency, unspecified

== ENCOUNTER 2023-07-10 10:48 | Inpatient (IN) | payer MEDICARE ==
[~2023-07-10] VITALS: Ht 170.2 cm; Wt 69.6 kg
[2023-07-10] VITALS (23 sets, daily range): BP systolic 90–123; BP diastolic 52–84
[2023-07-10] MEDS ORDERED: XARELTO20 MG PO (11:06)
[2023-07-10] MEDS ORDERED: VIBRAMYCIN100 M2 PO (11:07)
[2023-07-10] MEDS ORDERED: PREDNISONE20 MG PO (11:07)
[2023-07-10 11:37] LABS: BASO% 0.2 % (0-3); EOS% 0.7 % (0-8); HEMATOCRIT 37.7 % (37.0-47.0); HEMOGLOBIN 12.7 g/dl (12.0-16.0); IMMATURE GRANULOCYTES 0.3 % (0.0-5.0); LYMPH% 7.8 % (15-41); MEAN CELL VOLUME 89.5 fL CALC (80.0-100.0); MEAN CORPUSCULAR HGB 30.2 pG CALC (26.0-32.0); MEAN CORPUSCULAR HGB CONC 33.7 g/dL CAL (32.0-36.0); MONO% 7.7 % (2-13); NEUT# 12.43 thou/uL (2.00-7.15); NEUT% 83.3 % (42-76); RED BLOOD COUNT 4.21 mill/uL (4.20-5.60); RED CELL DISTRI WIDTH 12.9 % (11.5-15.5)
[2023-07-10 11:49] LABS: ALBUMIN 3.6 g/dL (3.2-5.0); ALKALINE PHOSPHATASE 72 u/l (38-126); BILIRUBIN, TOTAL 0.6 mg/dL (0.02-1.3); BUN 24 mg/dL (8-23); BUN/CREATININE RATIO 21 (12-20 (CALC)); CARBON DIOXIDE 29 mmol/l (22-30); CHLORIDE 100 mmol/l (95-108); CREATININE 1.2 mg/dL (0.5-1.0); GFR FOR AFR.AMER. 52 ML/MIN (>=60 (CALC)); GFR OTHER RACES 43 ML/MIN (>=60 (CALC)); SODIUM 140 mmol/l (137-146); TOTAL PROTEIN 6.4 g/dL (6.3-8.2)
[2023-07-10 11:50] LABS: ANION GAP 14 (6-22 (CALC)); POTASSIUM 3.2 mmol/l (3.5-5.1); SGOT/AST 55 u/l (9-36)
[2023-07-10 11:57] LABS: ACT PARTIAL THROMBO TIME 27.5 SECONDS (20.0-32.5); INTERNATIONAL NORMALIZED RATIO 1.3 RATIO (0.7-1.3); PROTHROMBIN TIME 12.3 SECONDS (9.0-12.5)
[2023-07-10] MEDS ORDERED: ANORO ELLIPTA 61 AER IN (12:29)
[2023-07-10] MEDS ORDERED: HYDROCHLOROT12.5 M1 PO (12:30)
[2023-07-10] MEDS ORDERED: ZOLOFT100 MG PO (12:30)
[2023-07-10] MEDS ORDERED: MEMANTINE HYDRO10 MG PO (12:31)
[2023-07-10] MEDS ORDERED: CRESTOR20 MG PO (12:31)
[2023-07-10] MEDS ORDERED: MIRTAZAPINE15 MG PO (12:32)
[2023-07-10] MEDS ORDERED: D32000 UNIT PO (12:40)
[2023-07-10] MEDS ORDERED: B121000 MC1 PO (12:40)
[2023-07-11] VITALS (8 sets, daily range): BP systolic 112–131; BP diastolic 57–82
[2023-07-11 01:45] LABS: URINE BILIRUBIN - DIPSTICK Negative (NEGATIVE); URINE BLOOD DIPSTICK Negative (NEGATIVE); URINE GLUCOSE - DIPSTICK Negative (NEGATIVE); URINE KETONE Negative (NEGATIVE); URINE LEUK ESTERASE Trace (NEGATIVE); URINE NITRITE - DIPSTICK Negative (Negative); URINE PROTEIN - DIPSTICK Negative (NEG-TRACE); URINE UROBILINOGEN - DIPSTICK 0.2 E.U./dL (0.2)
[2023-07-11 01:49] LABS: URINE COLOR Yellow
[2023-07-11 06:34] LABS: BASO% 0.4 % (0-3); EOS% 1.5 % (0-8); HEMATOCRIT 34.8 % (37.0-47.0); HEMOGLOBIN 11.2 g/dl (12.0-16.0); IMMATURE GRANULOCYTES 0.3 % (0.0-5.0); LYMPH% 7.7 % (15-41); MEAN CELL VOLUME 90.9 fL CALC (80.0-100.0); MEAN CORPUSCULAR HGB 29.2 pG CALC (26.0-32.0); MEAN CORPUSCULAR HGB CONC 32.2 g/dL CAL (32.0-36.0); MONO% 7.4 % (2-13); NEUT# 9.93 thou/uL (2.00-7.15); NEUT% 82.7 % (42-76); RED BLOOD COUNT 3.83 mill/uL (4.20-5.60); RED CELL DISTRI WIDTH 12.9 % (11.5-15.5)
[2023-07-11 07:02] LABS: ALKALINE PHOSPHATASE 71 u/l (38-126); BILIRUBIN, TOTAL 0.5 mg/dL (0.02-1.3); BUN 17 mg/dL (8-23); BUN/CREATININE RATIO 19 (12-20 (CALC)); C-REACTIVE PROTEIN 4.5 mg/dL (0-0.9); CALCULATED LDLCHOLESTEROL 29 mg/dL (62-129 (CALC)); CHLORIDE 106 mmol/l (95-108); CHOLESTEROL HDL RATIO 2.5 (<4.4 (CALC)); CREATININE 0.9 mg/dL (0.5-1.0); GFR FOR AFR.AMER. > 60 ML/MIN (>=60 (CALC)); GFR OTHER RACES 60 ML/MIN (>=60 (CALC)); HDL CHOLESTEROL 36 mg/dL (39.0-59.0); SGOT/AST 49 u/l (9-36); SODIUM 139 mmol/l (137-146); TOTAL CHOLESTEROL 93 mg/dl (0-199); TOTAL PROTEIN 5.5 g/dL (6.3-8.2); TOTAL TRIGLYCERIDES 137 mg/dl (0-149); VLDL CHOLESTROL 27 mg/dl (0-48 (CALC))
[2023-07-11 07:04] LABS: ANION GAP 13 (6-22 (CALC)); CARBON DIOXIDE 23 mmol/l (22-30)
[2023-07-12] VITALS (8 sets, daily range): BP systolic 128–146; BP diastolic 60–85
[2023-07-12 07:16] LABS: ALBUMIN 2.9 g/dL (3.2-5.0); ALKALINE PHOSPHATASE 68 u/l (38-126); ANION GAP 11 (6-22 (CALC)); BILIRUBIN, TOTAL 0.5 mg/dL (0.02-1.3); BUN 14 mg/dL (8-23); BUN/CREATININE RATIO 14 (12-20 (CALC)); CARBON DIOXIDE 25 mmol/l (22-30); CHLORIDE 106 mmol/l (95-108); GFR FOR AFR.AMER. > 60 ML/MIN (>=60 (CALC)); GFR OTHER RACES 53 ML/MIN (>=60 (CALC)); POTASSIUM 3.2 mmol/l (3.5-5.1); SGOT/AST 34 u/l (9-36); SODIUM 139 mmol/l (137-146); TOTAL PROTEIN 5.4 g/dL (6.3-8.2)
[2023-07-12 07:17] LABS: BASO% 0.2 % (0-3); EOS% 2.8 % (0-8); HEMATOCRIT 30.2 % (37.0-47.0); HEMOGLOBIN 10.1 g/dl (12.0-16.0); IMMATURE GRANULOCYTES 0.4 % (0.0-5.0); LYMPH% 8.6 % (15-41); MEAN CELL VOLUME 89.9 fL CALC (80.0-100.0); MEAN CORPUSCULAR HGB 30.1 pG CALC (26.0-32.0); MEAN CORPUSCULAR HGB CONC 33.4 g/dL CAL (32.0-36.0); MONO% 8.2 % (2-13); NEUT# 6.62 thou/uL (2.00-7.15); NEUT% 79.8 % (42-76); RED BLOOD COUNT 3.36 mill/uL (4.20-5.60)
[2023-07-13 03:38] VITALS: BP 139/70
[2023-07-13 04:00] VITALS: BP 139/70
[2023-07-13 06:53] VITALS: BP 147/64
[2023-07-13 07:41] LABS: BASO% 0.5 % (0-3); HEMATOCRIT 32.3 % (37.0-47.0); HEMOGLOBIN 10.4 g/dl (12.0-16.0); IMMATURE GRANULOCYTES 0.4 % (0.0-5.0); LYMPH% 9.2 % (15-41); MEAN CELL VOLUME 91.5 fL CALC (80.0-100.0); MEAN CORPUSCULAR HGB 29.5 pG CALC (26.0-32.0); MEAN CORPUSCULAR HGB CONC 32.2 g/dL CAL (32.0-36.0); MONO% 8.3 % (2-13); NEUT# 6.5 thou/uL (2.00-7.15); NEUT% 78.6 % (42-76); RED BLOOD COUNT 3.53 mill/uL (4.20-5.60)
[2023-07-13 07:53] LABS: ALBUMIN 3.2 g/dL (3.2-5.0); ALKALINE PHOSPHATASE 68 u/l (38-126); BUN 11 mg/dL (8-23); BUN/CREATININE RATIO 14 (12-20 (CALC)); CARBON DIOXIDE 24 mmol/l (22-30); CHLORIDE 106 mmol/l (95-108); CREATININE 0.8 mg/dL (0.5-1.0); GFR FOR AFR.AMER. > 60 ML/MIN (>=60 (CALC)); GFR OTHER RACES > 60 ML/MIN (>=60 (CALC)); MAGNESIUM 2.1 mg/dL (1.6-2.3); SGOT/AST 37 u/l (9-36); SODIUM 140 mmol/l (137-146)
[2023-07-13 07:54] LABS: ANION GAP 14 (6-22 (CALC)); BILIRUBIN, TOTAL 0.8 mg/dL (0.02-1.3)
[2023-07-13 10:33] VITALS: BP 139/76
[2023-07-13] MEDS ORDERED: LEVOFLOXACIN750 MG PO (14:04)
== END 2023-07-13 14:50 | disposition home health service (06) | DRG 178 ==
LOC: ED 10:48 → ED-I 14:28 → ED 14:40 → MS2 14:41
PROVIDERS: Emergency Medicine; Nurse Practitioner Family; ADMIT Student in an Organized Health Care Education/Training Program; ATTEND Student in an Organized Health Care Education/Training Program
DX: J15.1 Pneumonia due to Pseudomonas (principal); J44.0 Chronic obstructive pulmonary disease with (acute) lower respiratory infection; N17.9 Acute kidney failure, unspecified; E87.6 Hypokalemia; I10 Essential (primary) hypertension; I48.91 Unspecified atrial fibrillation; G62.9 Polyneuropathy, unspecified; E03.9 Hypothyroidism, unspecified; F03.90 Unspecified dementia, unspecified severity, without behavioral disturbance, psychotic disturbance, mood disturbance, and anxiety; F41.9 Anxiety disorder, unspecified; Z95.0 Presence of cardiac pacemaker; Z85.3 Personal history of malignant neoplasm of breast; Z85.41 Personal history of malignant neoplasm of cervix uteri; Z92.3 Personal history of irradiation; Z79.01 Long term (current) use of anticoagulants; Z20.822 Contact with and (suspected) exposure to COVID-19
CPT/HCPCS: J0692